=== PATIENT | male | born 2000 | race Caucasian/White ===

== ENCOUNTER 2023-11-16 12:30 | Emergency (ER) | payer OTHER ==
[~2023-11-16] VITALS: Ht 182.9 cm; Wt 136.4 kg
[2023-11-16 12:35] VITALS: TEMP 98
[2023-11-16 13:09] LABS: EOS # 0.1 K/mm3 (0.0-0.7); EOS % 2.5 % (0.0-4.0); GRAN # 1.7 K/mm3 (1.4-6.5); GRAN % 43.7 % (42.2-75.2); HEMATOCRIT 48.6 % (42.0-52.0); HEMOGLOBIN 16.9 g/dl (13.5-18.0); LYMPH # 1.7 K/mm3 (1.2-3.4); LYMPH % 42.2 % (20.0-51.0); MEAN CELL VOLUME 87 fl (80.0-100.0); MEAN CORPUSCULAR HEMOGLOBIN 30 pg (27-31); MEAN CORPUSCULAR HGB CONC 35 g/dl (33.0-37.0); MEAN PLATELET VOLUME 7.9 fl (7.4-10.4); MONO # 0.4 K/mm3 (0.1-0.6); MONO % 10.6 % (1.7-9.3); PLATELET COUNT 294 K/mm3 (130-400); RED BLOOD COUNT 5.61 M/mm3 (4.20-5.60); REDCELL DISTRIBUTION WIDTH-CV 12.2 % (11.5-14.5)
[2023-11-16 13:42] LABS: ALANINE AMINOTRANSFERASE 17 U/L (0-55); ALBUMIN 4.2 gm/dL (3.5-5.0); ALKALINE PHOSPHATASE 88 U/L (40-150); ANION GAP 11 mmol/L (7-16); AST,SGOT 17 U/L (5-34); BILIRUBIN,TOTAL 0.9 mg/dL (0.2-1.2); BLOOD UREA NITROGEN 13 mg/dL (9-21); CALCIUM 9.7 mg/dL (8.4-10.2); CARBON DIOXIDE 21 mmol/L (22-29); CHLORIDE 108 mmol/L (98-107); GLUCOSE 97 mg/dL (70-99); SODIUM 140 mmol/L (136-145); TOTAL PROTEIN 7.7 gm/dL (6.2-8.1)
[2023-11-16 14:15] LABS: TROPONIN-I < 0.010 ng/mL (0.00-0.033)
[2023-11-16] MEDS ORDERED: NORCO 325 MG-51 TAB PO (14:41)
[2023-11-16] MEDS ORDERED: MOTRIN 800800 MG/TAB PO (14:41)
[2023-11-16] MEDS ORDERED: FLEXERIL 1010 MG/TAB PO (14:41)
[2023-11-16 14:51] VITALS: BP 113/72; PULSE 97
== END 2023-11-16 14:51 | disposition home or self-care (01) ==
LOC: COL.ER 12:30
PROVIDERS: Personal Emergency Response Attendant
DX: M54.9 Dorsalgia, unspecified (principal); R07.9 Chest pain, unspecified; F17.210 Nicotine dependence, cigarettes, uncomplicated
CPT/HCPCS: J2270; J2405

== ENCOUNTER 2024-08-06 19:48 | Emergency (ER) | payer SELFPAY ==
[~2024-08-06] VITALS: Ht 182.9 cm; Wt 122.7 kg
[~2024-08-06 19:48] MED LIST: FLEXERIL 1010 MG/TAB PO; MOTRIN 800800 MG/TAB PO; NORCO 325 MG-51 TAB PO
[2024-08-06 19:58] VITALS: TEMP 97.5
[2024-08-06] MEDS ORDERED: Ibuprofen 400 MG TAB PO ONE (20:45)
[2024-08-06 21:36] VITALS: BP 120/62; PULSE 98
== END 2024-08-06 21:40 | disposition home or self-care (01) ==
LOC: COL.ER 19:48
DX: S93.402A Sprain of unspecified ligament of left ankle, initial encounter (principal); X50.1XXA Overexertion from prolonged static or awkward postures, initial encounter; Y93.02 Activity, running; Y92.89 Other specified places as the place of occurrence of the external cause